=== PATIENT | female | born 1935 | race Caucasian/White ===

== ENCOUNTER → 2016-11-22 | Outpatient (CLI) | payer MEDICARE, BC ==
[~2016-11-22] MED LIST: ACETAMINOPHEN PO; ALTACE PO; ASMANEX; ASPIRIN EC81 M1 PO; ASPIRIN81 M1 PO; ASPIRINEC PO; AUGMENTIN PO; AZITHROMYCIN250 MG PO; BIOTIN2500 MCG PO; CARDIZEM CD PO; CARDIZEM CD180 M1 PO; CARDIZEM SR PO; CARTIA XT PO; CEFTAZIDIME IVF; CHLORTHALIDONE25 M1 PO; CITRACAL200 M1 PO; COUMADIN PO; COUMADIN2.5 MG PO; DIGOXIN125 MCG PO; DILTIA XT180 MG PO; EFFER-K 20 MEQ20 MEQ PO; EVISTA60 M1 DOB; EVISTA60 M1 PO; EVISTA60 MG PO; LANOXIN PO; LEVOFLOXACIN500 MG PO; MULTIVITAMIN1 UDCAP PO; NASONEX17 GM; ONDANSETRON ODT4 MG PO; PREDNISONE10 MG PO; PRILOSEC PO; PRILOSEC20 MG PO; PROPAFENONE HC150 MG PO; RYTHMOL PO; TOBRAMYCIN IVF; VIT B-12 PO; VITAMIN D-32000 UNIT PO; XOPENEX1.25 MG/0. NEB; [UNRECOGNIZED DRUG - OTHER] PO
--- NOTE | ~2016-11-22 | US85 ---
[facility] A Service of [facility] RADIOLOGY TEXT RESULTS PATIENT: OSMIN ONOFRE LOCATION: SNIV : 35 UNIT #: [id number] AGE: [address]: Joshua Ivy MD SEX: F ORDER DR: [id number] [place] [id number] O MR#: [id number] Acc #: [id number] NAME: OSMIN ONOFRE : 1935 SEX: F STUDY DATE/TIME: 11/22/2016 11:09 UNIT: SNIV ROOM: STUDY DESCRIPTION: [facility] [place] [facility] Attending Physician: Joshua Ivy M.D. Referring Physician: Joshua Ivy M.D. Ordering Physician: Joshua Ivy M.D. Primary Care Physician: Joshua Ivy M.D. MEDICAL IMAGING REPORT This report is preliminary unless electronic signature is present. EXAM Unilateral right lower extremity venous Doppler, 11/22/2016 HISTORY Pain behind right knee for 1 week. PROCEDURE [place]-scale imaging, color Doppler flow imaging and Doppler waveform analysis. FINDINGS There is normal color flow, compressibility, and where appropriate, respiratory phasicity and/or augmentation throughout the entire right lower extremity deep venous system as well as in the superficial saphenous veins. There is a large popliteal fossa Lugo's cyst measuring about 4 x 2 cm in maximal dimension. IMPRESSION 1. Negative unilateral right lower extremity venous Doppler with approximately 4 x 2 cm Lugo's cyst. 2. Results were called to Dr. Fenton's office at 11:55 a.m. Dictated by... Joao Sánchez M.D. THIS IS AN ELECTRONICALLY VERIFIED REPORT Joao Sánchez M.D. at 11/24/2016 1:53 PM TEV/psc [facility] A Service of [facility] & [facility] RADIOLOGY TEXT RESULTS PATIENT: OSMIN ONOFRE LOCATION: SNIV : 35 UNIT #: [id number] AGE: [address]: Joshua Ivy MD SEX: F ORDER DR: TD: 11/22/2016 17:09 JOB #: [id number] MEDICAL IMAGING REPORT Page 1 of 1
== END | disposition home or self-care (01) ==
LOC: SNIV 10:28
DX: M79.604 Pain in right leg (principal); M71.21 Synovial cyst of popliteal space [Baker], right knee
CPT/HCPCS: 93971